=== PATIENT | female | born 1955 | race Caucasian/White ===

== ENCOUNTER 2018-09-15 13:01 | Outpatient (CLI) | payer MEDICARE ==
--- NOTE | 2018-09-15 14:19 | BD ---
DEXA SCAN: INDICATION: Osteoporosis screening. COMPARISON: Prior exam dated 09/30/2011. FINDINGS: Lumbar Spine: BMD (g/cm2) L1 0.864 T-Score: -1.1 Z-Score: 0.4 L2 0.971 T-Score: -0.5 Z-Score: 1.2 L3 0.944 T-Score: -1.3 Z-Score: 0.6 L4 1.016 T-Score: -0.4 Z-Score: 1.5 L1-L4 0.953 T-Score: -0.9 Z-Score: 0.9 The bone mineral density of the L1 through L4 region appears mildly improved from the comparison exam ination. Much of this may be related to worsening degenerative disk disease. Femoral Neck: 0.619 T-Score: -2.1 Z-Score: 0.6 Total Femur: 0.747 T-Score: -1.6 Z-Score: 0.4 Impression: Based on WHO criteria, the patient's bone mineral density is considered osteopenic. This has mildly improved from a comparison in 2011. The patient remains at moderate risk for fracture. POS: [facility]
== END 2018-09-15 13:02 | disposition home or self-care (01) ==
LOC: BICMAMMO 13:01
PROVIDERS: ATTEND Internal Medicine Rheumatology
DX: M81.0 Age-related osteoporosis without current pathological fracture (principal)
CPT/HCPCS: 77080